=== PATIENT | male | born 1950 | race Caucasian/White ===

== ENCOUNTER 2017-05-22 11:58 | Emergency (ER) | payer MEDICARE ==
[~2017-05-22] VITALS: Ht 180.3 cm; Wt 89.4 kg
[~2017-05-22 11:58] MED LIST: ATENOLOL100 MG PO; POTASSIUM CHLO20 ME1 PO; POTASSIUM PO; PRAVASTATIN PO; PRAVASTATIN SOD80 MG PO; TENORETIC PO
[2017-05-23] MEDS ORDERED: DOCUSATE SODIUM LIQD 100 MG/10 ML UDC NG SCH ×2 (09:00)
== END 2017-05-22 15:44 | disposition home or self-care (01) ==
LOC: FSED 11:58
DX: H92.03 Otalgia, bilateral (principal); H61.23 Impacted cerumen, bilateral
CPT/HCPCS: 99284

== ENCOUNTER → 2017-06-24 | Day surgery (SDC) | payer MEDICARE ==
--- NOTE | 2017-06-22 13:46 | Diagnostic Imaging Report ---
PROCEDURE: X-RAY CHEST, TWO VIEWS COMPARISON: Chest x-ray 10/01/15 INDICATIONS: PRE-OPERATIVE CHEST X-RAY FOR REMOVAL OF VAP FINDINGS: LUNGS: No soft tissue mass or infiltrate. A subcentimeter granuloma or bone island in the left upper lobe is stable. The pulmonary interstitium is normal. PLEURA: No effusions or pneumothorax. HEART \T\ MEDIASTINUM: MediPort catheter terminates in the distal innominate vein/proximal SVC without pneumothorax. The heart is within normal size-limits. Prominent pulmonary arteries are stable. BONES \T\ SOFT TISSUES: No focal osseous lesions. Surgical clips in the lower right neck are stable. CONCLUSION: No acute thoracic abnormality. MediPort catheter as described above. Dictated by: Gopi Patel M.D. on 06/22/2017 at 13:47 Electronically approved by: Gopi Patel M.D. on 06/22/2017 at 13:47
[2017-06-22 13:58] LABS: BASOPHILS % 0.4 % (0.0-1.0); EOSINOPHILS # (AUTO) 0.1 (0.0-0.4); EOSINOPHILS % 1.9 % (0.0-6.0); HEMATOCRIT 46.4 % (38.2-49.6); LYMPHOCYTES % 26.2 % (18.0-39.1); MEAN CORPUSCULAR HGB CONC 34.5 g/dL (31-35); MEAN CORPUSCULAR VOLUME 86.9 fL (81-99); MONOCYTES # (AUTO) 0.7 (0.2-0.8); MONOCYTES % 8.8 % (4.4-11.3); NEUTROPHILS # (AUTO) 4.7 (2.1-6.9); NEUTROPHILS % 62.3 % (38.7-80.0); PLATELET COUNT 201 x10e3/uL (140-360); RED BLOOD COUNT 5.34 x10e6/uL (4.3-5.7); RED CELL DISTRIBUTION WIDTH 14.2 % (11.7-14.4)
[2017-06-22 14:20] LABS: ALANINE AMINOTRANSFERASE 36 IU/L (0-55); ALBUMIN 3.9 g/dL (3.5-5.0); ALBUMIN/GLOBULIN RATIO 1.1 (0.8-2.0); ALKALINE PHOSPHATASE 73 IU/L (40-150); ANION GAP 14.7 mmol/L (8-16); BLOOD UREA NITROGEN 18 mg/dL (7-26); BUN/CREATININE RATIO 18 (6-25); CARBON DIOXIDE 34 mmol/L (22-29); CHLORIDE 99 mmol/L (98-107); CREATININE, SERUM 0.98 mg/dL (0.72-1.25); EST GLOMERULAR FILTRATION RATE > 60 ML/MIN (60-); GLUCOSE 105 mg/dL (74-118); POTASSIUM 4.7 mmol/L (3.5-5.1); SODIUM 143 mmol/L (136-145)
[~2017-06-24] MED LIST changes: +BUPIVACAINE 0.25%/EPI 30ML SDV INJ ONE; +FENTANYL CITRATE/PF 100MCG/2 ML INJ ONE; +HYOSCYAMINE SULFATE 0.5 MG/ML AMP ONE; +LIDOCAINE HCL 1% LOCAL INJ 20 ML VIAL ONE; +LIDOCAINE HCL 2% LOCAL INJ 5 ML SDV VIAL INJ ONE; +MIDAZOLAM HCL 2 MG/2 ML VIAL ONE; +PROPOFOL IV EMULSION 10 MG/ML 50 ML VIAL ONE
--- OUTSIDE RECORDS SUMMARY | 2017-06-24 10:58 | XMS REPORT | Continuity of Care Document ---
Author Author [facility] Organization [facility] Address [address] [place] [address] Phone Unavailable Care Team Providers Care Automation Lead Name Role Phone JHON LIMON MD PCP Insurance Providers Guarantor Narendra Morse Address [address] [place] [address] Email [email or web address] Payer [facility] Policy Number [id number] Subscriber's Name SadiebingchloeNarendra Relationship 18 Self / Same As Patient Group Number PLAN [id number] Group Name [employer] Effective Date 17 Payer Medicare A & B Policy Number [id number] Subscriber's Name Narendra Morse Relationship 18 Self / Same As Patient Group Name [employer] Effective Date 15 Advance Directives Directive Response Recorded Date/Time Does the patient have an advance directive? No 10/08/15 3:33pm If yes, is advance directive on file with [facility]? No 10/24/09 3:24pm If not on file with [facility] will patient provide a copy? No 03/25/10 11:52am Do you have a Directive to Physician? No 05/22/17 12:47pm Do you have a Medical Power of Vacuum Metalizing Supervisor? No 04/01/18 12:47pm Do you have an out of hospital Do Not Resuscitate Order? No 05/22/17 12:47pm Do you have any special needs we should be aware of? No 05/22/17 12:47pm Do you have a support person here with you today? No 05/22/17 12:47pm Did patient receive Notice of Privacy Practices? Yes 05/22/17 12:47pm Did patient receive patient rights and responsibilities? Yes 05/22/17 12:47pm Problems No problem information available. Medications Current Home Medications Medication Dose Units Route Directions Days Qty Instructions Start Date Atenolol 100 Mg Tablet 100 Mg Oral Daily Potassium Chloride 20 Meq Tab.er.prt 20 Meq Oral Daily Pravastatin Sodium 80 Mg Tablet 80 Mg Oral Daily THERAPEUTICALLY SUBSTITUTED WITH SIMVASTATIN 40MG Past Home Medications Medication Directions Ordered Status Potassium , Oral Daily Discontinued Pravastatin , Oral Daily Discontinued Tenoretic , Oral Daily Discontinued Family History Relationship Condition Age at Onset Recorded Date/Time 33 Father Family history of cardiac disorder Not Recorded 10/08/2015 3:46pm 32 Mother Family history of diabetes mellitus Not Recorded 10/08/2015 3:45pm 09 Sister FH: ovarian cancer Not Recorded 10/08/2015 3:46pm Social History Social History Problem Response Recorded Date/Time Onset Date Status Hx Psychiatric Problems No 10/08/2015 3:33pm Not Applicable Not Applicable Hx Eating Disorder No 10/08/2015 3:33pm Not Applicable Not Applicable Hx Substance Use Disorder No 10/08/2015 3:33pm Not Applicable Not Applicable Hx Depression No 10/08/2015 3:33pm Not Applicable Not Applicable Hx Alcohol Use Y - SOCIAL 10/08/2015 3:33pm Not Applicable Not Applicable Hx Substance Use Treatment No 10/08/2015 3:33pm Not Applicable Not Applicable Hx Physical Abuse No 10/08/2015 3:33pm Not Applicable Not Applicable Hospital Discharge Instructions No hospital discharge instruction information available. Plan of Care Discharge Date 05/22/17 3:44pm Disposition HOME, SELF-CARE Condition at Discharge Stable Instructions/Education Provided Ear Pain - Adult Prescriptions See Medication Section Referrals JHON LIMON MD Address: [address] [place], [place] [id number] MIKI AREVALO Address: [address] [place] [address] [address] [place] [address] Additional Instructions/Education CALL YOUR DOCTOR TOMORROW FOR FOLLOW UP MAKE AN APPOINTMENT FOR ENT DOCTOR FOR FOLLOW UP Functional Status No functional status information available. Allergies, Adverse Reactions, Alerts No known allergies. Immunizations No immunization information available. Vital Signs Acute Vital Signs Vital Response Date/Time Height 5 ft 11 in 05/22/2017 12:39pm Weight 197 lb 05/22/2017 12:39pm Body Mass Index 27.5 kg/m^2 05/22/2017 12:39pm Results No relevant diagnostic test, laboratory data and/or discharge summary information available. Procedures No procedure information available. Encounters Encounter Location Arrival/Admit Date Discharge/Depart Date Attending Provider Departed Emergency Room [facility] 05/22/17 11:58am 05/22 3:44pm HANK MARTINS
--- OUTSIDE RECORDS SUMMARY | 2017-06-24 10:58 | XMS REPORT ---
Author Author [facility] Address Unknown Phone Unavailable Care Team Providers Care Transformer Builder Name Role Phone CARLITA KLEIN Unavailable Unavailable Problems This patient has no known problems. Allergies, Adverse Reactions, Alerts This patient has no known allergies or adverse reactions. Medications This patient has no known medications. Results Test Description Test Time Test Comments Text Results Atomic Results Result Comments CHEST 2 VIEWS [place] [address] Patient Name: NARENDRA MORSE MR #: [id number] : 1950 Age/Sex: 67/M Req #: [id number] Adm Physician: Ordered by: CARLITA KLEIN MD Report #: [id number] Location: ENDO Room/Bed: Procedure: [id number] DX/CHEST 2 VIEWS Exam Date: 06/22/17 Exam Time : 1330 REPORT STATUS: Signed PROCEDURE: X-RAY CHEST, TWO VIEWS COMPARISON: Chest x-ray 10/01/15 INDICATIONS: PRE-OPERATIVE CHEST X-RAY FOR REMOVAL OF VAP FINDINGS: LUNGS: No soft tissue mass or infiltrate. A subcentimeter granuloma or bone island in the left upper lobe is stable. The pulmonary interstitium is normal. PLEURA: No effusions or pneumothorax. HEART T MEDIASTINUM: MediPort catheter terminates in the distal innominate vein/proximal SVC without pneumothorax. The heart is within normal size-limits. Prominent pulmonary arteries are stable. BONES T SOFT TISSUES: No focal osseous lesions. Surgical clips in the lower right neck are stable. CONCLUSION: No acute thoracic abnormality. MediPort catheter as described above. Dictated by: Juhi Patel M.D. on 06/22/2017 at 13:47 Electronically approved by: Juhi Patel M.D. on 06/22/2017 at 13:47 Dictated By: JUHI PATEL MD [id number] Transcribed By: DEREK on 06/22/17 1347 COPY TO: CARLITA KLEIN MD
--- NOTE | 2017-06-24 19:01 | Operative Report ---
DATE OF PROCEDURE: June 24, 2017 PREOPERATIVE DIAGNOSIS: Malfunctioning venous access port. POSTOPERATIVE DIAGNOSIS: Malfunctioning venous access port. OPERATION PERFORMED: Removal of left subclavian venous access port. ANESTHESIA: Local 1% Xylocaine and MAC. COMPLICATIONS: None. ESTIMATED BLOOD LOSS: Minimal. DESCRIPTION OF PROCEDURE: With the patient lying in bed in the supine position under good IV sedation, the left chest was prepped with Betadine solution and draped in the usual manner. The area overlying the Port-A-Cath was then infiltrated with 1% Xylocaine solution. An incision was made. It was carried down through the subcutaneous tissue and through the capsule of the Port-A-Cath. All 4 silk sutures were removed, and the Port-A-Cath was removed in its entirety without any difficulty. Hemostasis was ascertained. The capsule of the Port-A-Cath was then closed with interrupted sutures of 3-0 Vicryl. The subcutaneous tissue was approximated with 4-0 Vicryl. The skin was closed with subcuticular 5-0 Vicryl. Benzoin, Steri-Strips and dressings were applied. The sponge, lap and needle count was correct. The patient tolerated the procedure well, and returned to the recovery room in stable condition. Job#: [id number] EMANUEL
--- NOTE | 2017-06-24 19:56 | Operative Report ---
DATE OF PROCEDURE: June 24, 2017 REFERRING PHYSICIAN: Dr. Jhon Castanon PROCEDURES PERFORMED 1. Esophagogastroduodenoscopy. 2. Colonoscopy. INDICATIONS FOR EGD 1. History of gastric ulcers. 2. Nunez's esophagus. INDICATIONS FOR COLONOSCOPY 1. Colorectal cancer screening. 2. Personal history of rectal cancer. MEDICATION: Patient was done under MAC. Please see anesthesiologist's note. PROCEDURE: With patient in the left lateral decubitus position, the flexible fiberoptic Olympus gastroscope was introduced into the esophagus under direct visualization without any difficulty. There was a short tongue of Nunez's epithelium noted extending proximally from the GE junction, biopsies were obtained. The scope was then advanced with ease into the stomach. Mucosa overlying the antrum and the body revealed some patchy areas of erythema and low-grade edema. Biopsies were obtained and sent to stain for H. pylori. Minute ulcers were noted in the antrum and biopsies were obtained. The pylorus was intubated with ease and the scope was advanced all the way to the 2nd portion of the duodenum. The scope was then withdrawn slowly. Mucosa overlying the proximal 2nd portion and the duodenal bulb appeared to be within normal limits. The scope was then withdrawn back into the stomach and retroflexed and mucosa overlying the fundus and the cardia appeared to be within normal limits. The scope was then straightened out. The stomach was decompressed. Scope was subsequently withdrawn. Patient tolerated the procedure well. IMPRESSIONS 1. Nunez's esophagus, biopsied. 2. Gastritis, biopsied. Biopsies sent to stain for Helicobacter pylori. 3. Gastric ulcers, minute, antrum biopsied. PLAN: Follow up histology. Initiate Protonix 40 mg 1 p.o. q.a.m a.c.. Patient was then turned around and after adequate lubrication of the anal canal a flexible fiberoptic Olympus colonoscope was inserted into the rectum with ease and advanced all the way to the cecum. It was then withdrawn slowly. Mucosa overlying the cecum ascending colon transverse colon descending colon, sigmoid colon appeared to be within normal limits. Anastomosis was noted in the distal rectum and was intact. There was no evidence of recurrence. The scope was then retroflexed into the distal rectum and the area around the dentate line appeared to be within normal limits. The scope was then straightened out and a subsequently withdrawn. Patient tolerated the procedure well. IMPRESSION: Anastomosis, intact, no evidence of recurrence. PLAN 1. Initiate high-fiber low-fat diet. 2. Initiate high-fiber supplement. 3. Patient will need a followup colonoscopy in 3 years. Job#: [id number] CQ cc:JHON CASTANON MD
== END | disposition home or self-care (01) ==
LOC: ENDO 10:56
PROVIDERS: ATTEND Surgery
DX: Z12.11 Encounter for screening for malignant neoplasm of colon (principal); Z85.048 Personal history of other malignant neoplasm of rectum, rectosigmoid junction, and anus; T82.594A Other mechanical complication of infusion catheter, initial encounter; K29.70 Gastritis, unspecified, without bleeding; K25.9 Gastric ulcer, unspecified as acute or chronic, without hemorrhage or perforation; K22.70 Barrett's esophagus without dysplasia; K57.30 Diverticulosis of large intestine without perforation or abscess without bleeding; K22.8 Other specified diseases of esophagus; Z98.0 Intestinal bypass and anastomosis status; G47.33 Obstructive sleep apnea (adult) (pediatric); I10 Essential (primary) hypertension; E78.00 Pure hypercholesterolemia, unspecified; Y83.8 Other surgical procedures as the cause of abnormal reaction of the patient, or of later complication, without mention of misadventure at the time of the procedure; Z01.810 Encounter for preprocedural cardiovascular examination; Z01.812 Encounter for preprocedural laboratory examination; Z01.818 Encounter for other preprocedural examination; Z79.82 Long term (current) use of aspirin; Z68.28 Body mass index [BMI] 28.0-28.9, adult
CPT/HCPCS: 36590; 43239; G0105; 36415; 45378; 71046; 80053; 85025; 88305; 88312; 93005; J1980; J2001; J2250

== ENCOUNTER 2017-12-02 09:06 | Observation (INO) | payer MEDICARE ==
[2017-11-23 10:49] LABS: BASOPHILS % 0.2 % (0.0-1.0); EOSINOPHILS # (AUTO) 0.2 (0.0-0.4); EOSINOPHILS % 2.5 % (0.0-6.0); HEMATOCRIT 48.7 % (38.2-49.6); HEMOGLOBIN 16.8 g/dL (14.0-18.0); LYMPHOCYTES # (AUTO) 1.9 (1.0-3.2); LYMPHOCYTES % 23.1 % (18.0-39.1); MEAN CORPUSCULAR HEMOGLOBIN 29.1 pg (28-32); MEAN CORPUSCULAR HGB CONC 34.5 g/dL (31-35); MEAN CORPUSCULAR VOLUME 84.3 fL (81-99); MONOCYTES # (AUTO) 0.8 (0.2-0.8); MONOCYTES % 9.7 % (4.4-11.3); NEUTROPHILS # (AUTO) 5.4 (2.1-6.9); NEUTROPHILS % 64.3 % (38.7-80.0); PLATELET COUNT 212 x10e3/uL (140-360); RED BLOOD COUNT 5.78 x10e6/uL (4.3-5.7); RED CELL DISTRIBUTION WIDTH 13.8 % (11.7-14.4)
--- NOTE | 2017-11-23 11:07 | Diagnostic Imaging Report ---
PROCEDURE: Frontal and lateral views of the chest. COMPARISON: Chest radiograph 06/22/17. INDICATIONS: PRE-OP, MELANOMA REMOVAL FINDINGS: Lines/tubes: Interval removal of left sided chest port. Lungs: Moderate lung volumes. There is no evidence of pneumonia or pulmonary edema. Calcified subcentimeter granuloma or bone island is again noted overlying the left upper lung. Pleura: There is no pleural effusion or pneumothorax. Heart and mediastinum: The cardiomediastinal silhouette is unchanged. Atherosclerotic aortic calcifications. Bones: No acute bony abnormality. IMPRESSION: No acute radiographic abnormality. Dictated by: RUPAL GARAY M.D. on 11/23/2017 at 11:15 Electronically approved by: RUPAL GARAY M.D. on 11/23/2017 at 11:15
[2017-11-23 11:13] LABS: ANION GAP 17.7 mmol/L (8-16); BLOOD UREA NITROGEN 16 mg/dL (7-26); BUN/CREATININE RATIO 15 (6-25); CALCIUM 9.9 mg/dL (8.4-10.2); CARBON DIOXIDE 29 mmol/L (22-29); CHLORIDE 98 mmol/L (98-107); CREATININE, SERUM 1.08 mg/dL (0.72-1.25); EST GLOMERULAR FILTRATION RATE > 60 ML/MIN (60-); GLUCOSE 111 mg/dL (74-118); POTASSIUM 3.7 mmol/L (3.5-5.1); SODIUM 141 mmol/L (136-145)
[~2017-12-02] VITALS: Ht 180.3 cm; Wt 90.7 kg
[~2017-12-02 09:06] MED LIST changes: -BUPIVACAINE 0.25%/EPI 30ML SDV INJ ONE; -FENTANYL CITRATE/PF 100MCG/2 ML INJ ONE; -HYOSCYAMINE SULFATE 0.5 MG/ML AMP ONE; -LIDOCAINE HCL 1% LOCAL INJ 20 ML VIAL ONE; -LIDOCAINE HCL 2% LOCAL INJ 5 ML SDV VIAL INJ ONE; -MIDAZOLAM HCL 2 MG/2 ML VIAL ONE; +PANTOPRAZOLE SO40 MG PO; -PROPOFOL IV EMULSION 10 MG/ML 50 ML VIAL ONE
[2017-12-02] MEDS ORDERED: MIDAZOLAM HCL 2 MG/2 ML VIAL ONE (12:20)
[2017-12-02] MEDS ORDERED: FENTANYL CITRATE/PF 100MCG/2 ML INJ ONE ×2 (12:20→15:14)
[2017-12-02] MEDS ORDERED: BUPIVACAINE 0.25%/EPI 30ML SDV INJ ONE (13:05)
[2017-12-02] MEDS ORDERED: NEOSTIGMINE 1 MG/ML 10ML VIAL ONE (13:05)
[2017-12-02] MEDS ORDERED: LIDOCAINE HCL 1% 30ML-PF VIAL ONE (13:05)
[2017-12-02] MEDS ORDERED: HYDROMORPHONE 1MG/1ML INJ IV PRN (15:00)
[2017-12-02] MEDS ORDERED: ACETAMINOPHEN 1000 MG/100 ML IV PRN (15:00)
[2017-12-02] MEDS ORDERED: KETOROLAC TROMETHAMINE 30 MG/ML VIAL IV PRN (15:00)
[2017-12-02] MEDS: SODIUM CHLORIDE 0.9% 1000ML 1,000 ML IV SCH (15:00)
--- NOTE | 2017-12-02 15:42 | Operative Report ---
DATE OF PROCEDURE: December 02, 2017 PREOPERATIVE DIAGNOSIS: Melanoma of the scalp. POSTOPERATIVE DIAGNOSIS: Melanoma of the scalp. OPERATION PERFORMED: Wide excision and melanoma of the scalp with rotational flap closure. ANESTHESIA: General. COMPLICATIONS: None. ESTIMATED BLOOD LOSS: 25 mL. DESCRIPTION OF PROCEDURE: With the patient lying in bed in the prone position under good general endotracheal anesthesia, the scalp was prepped with Hibiclens solution and draped in the usual manner. There was melanoma in the right posterior parietal scalp near the occipital junction which had been previously biopsied in the center. This was a rather large melanoma with some satellite lesions encompassing probably close to a 1.5 cm to 2 cm in size. At least a 1 cm margin was drawn all the way around the lesion and then an elliptical transverse incision was made all the way down to the bone and the lesion was totally and completely from the scalp and removed. It was properly oriented and marked and sent for pathological examination. Very wide flaps were then done in all directions in an anterior, posterior position and we went as wide as we could and we mobilized as much of the scalp as we could. However, because of the size of the lesion it was virtually impossible to get the center to approximate. The sides were then closed with interrupted vertical mattress sutures of 2-0 nylon and 0 Prolene and we got most of the area closed with the very center area probably about a centimeter and a half, could not be allowed reapproximated to this was left open and then packed with Xeroform gauze. A dressing was placed. The sponge, lap and needle count was correct. The patient tolerated the procedure well and returned to the recovery room in stable condition. Job#: [id number]
[2017-12-02 17:03] VITALS: BP 142/81
[2017-12-02] MEDS: HYDROMORPHONE 2MG/ML 2 MG/ML ML IV PRN ×2 (17:45→23:53)
[2017-12-02] MEDS: ONDANSETRON HCL INJ 2 MG/ML VIAL IV PRN ×2 (17:45→23:54)
[2017-12-02] MEDS: POTASSIUM CHLORIDE 20 MEQ TAB CR PO SCH (17:52)
[2017-12-02 18:22] VITALS: BP 176/84
[2017-12-02] MEDS ORDERED: KETOROLAC TROMETHAMINE 30 MG/ML VIAL ONE (19:50)
[2017-12-02] MEDS ORDERED: ROCURONIUM BROMIDE 10 MG/ML 5ML VIAL ONE (19:50)
[2017-12-02] MEDS ORDERED: CEFAZOLIN SOD 1 GM VIAL ONE (19:50)
[2017-12-02] MEDS ORDERED: SEVOFLURANE INHAL SOLN 250 ML PEN BTL ONE (19:50)
[2017-12-02] MEDS ORDERED: DEXAMETHASONE SOD PHOS INJ 4 MG/ML VIAL ONE (19:50)
[2017-12-02] MEDS ORDERED: LIDOCAINE HCL 2% LOCAL INJ 5 ML SDV VIAL INJ ONE (19:50)
[2017-12-02] MEDS ORDERED: ONDANSETRON HCL INJ 2 MG/ML VIAL ONE (19:50)
[2017-12-02] MEDS ORDERED: PROPOFOL IV EMULSION 10 MG/ML 20 ML VIAL ONE (19:50)
[2017-12-02 20:00] VITALS: BP 130/63
[2017-12-02] MEDS: HYDROCODONE/APAP 7.5MG-325MG 1 EA TAB PO PRN (20:01)
[2017-12-02] MEDS ORDERED: SIMVASTATIN 40 MG TAB PO SCH (21:00)
[2017-12-02] MEDS: CEFAZOLIN SOD 1 GM VIAL IV SCH (21:58)
[2017-12-02] MEDS ORDERED: CEFAZOLIN SOD 1 GM/D5W 50ML 50 ML IV SCH (22:00)
[2017-12-03] VITALS: BP 130/61
[2017-12-03] MEDS: SODIUM CHLORIDE 0.9% 1000ML 1,000 ML IV SCH ×2 (01:49→11:00)
[2017-12-03 04:00] VITALS: BP 139/72
[2017-12-03] MEDS: HYDROCODONE/APAP 7.5MG-325MG 1 EA TAB PO PRN (05:25)
[2017-12-03] MEDS: CEFAZOLIN SOD 1 GM VIAL IV SCH (05:25)
[2017-12-03] MEDS ORDERED: PANTOPRAZOLE SOD 40 MG TABEC PO SCH (07:30)
[2017-12-03 08:15] VITALS: BP 120/61
[2017-12-03] MEDS ORDERED: ATENOLOL 100 MG TAB PO SCH (09:00)
[2017-12-03] MEDS: POTASSIUM CHLORIDE 20 MEQ TAB CR PO SCH ×2 (09:30→17:30)
[2017-12-03 09:46] VITALS: BP 120/61
[2017-12-03] MEDS: HYDROMORPHONE 2MG/ML 2 MG/ML ML IV PRN ×2 (11:05→17:30)
[2017-12-03] MEDS: ONDANSETRON HCL INJ 2 MG/ML VIAL IV PRN ×2 (11:05→17:30)
[2017-12-03 11:47] VITALS: BP 124/60
[2017-12-03 16:13] VITALS: BP 129/62
[2017-12-03] MEDS ORDERED: NORCO 7.5-3251 EACH PO (18:44)
[2017-12-03] MEDS ORDERED: KEFLEX500 MG PO (18:44)
== END 2017-12-03 19:38 | disposition home or self-care (01) ==
LOC: OR 09:06 → PACU V 15:01 → MED/SURG 15:55
PROVIDERS: ADMIT Surgery; ATTEND Surgery
DX: D03.4 Melanoma in situ of scalp and neck (principal); I10 Essential (primary) hypertension; K21.9 Gastro-esophageal reflux disease without esophagitis; Z01.810 Encounter for preprocedural cardiovascular examination; Z01.812 Encounter for preprocedural laboratory examination; Z01.811 Encounter for preprocedural respiratory examination
CPT/HCPCS: 14020; 21011; 36415; 71046; 80048; 85025; 88309; 93005; G0378 ×2; J0690 ×2; J1100; J1170 ×2; J1885; J2001; J2250; J2405 ×2; J2710; J7030 ×2; S0164 ×2; 88305

== ENCOUNTER → 2018-09-01 | Day surgery (SDC) | payer MEDICARE ==
[2018-08-28 15:08] LABS: BASOPHILS % 0.3 % (0.0-1.0); EOSINOPHILS # (AUTO) 0.2 (0.0-0.4); EOSINOPHILS % 2.9 % (0.0-6.0); HEMATOCRIT 43.7 % (38.2-49.6); HEMOGLOBIN 14.5 g/dL (14.0-18.0); LYMPHOCYTES # (AUTO) 1.7 (1.0-3.2); LYMPHOCYTES % 21.7 % (18.0-39.1); MEAN CORPUSCULAR HEMOGLOBIN 28.9 pg (28-32); MEAN CORPUSCULAR HGB CONC 33.2 g/dL (31-35); MEAN CORPUSCULAR VOLUME 87.2 fL (81-99); MONOCYTES # (AUTO) 0.6 (0.2-0.8); MONOCYTES % 8.3 % (4.4-11.3); NEUTROPHILS # (AUTO) 5.1 (2.1-6.9); NEUTROPHILS % 66.5 % (38.7-80.0); PLATELET COUNT 223 x10e3/uL (140-360); RED BLOOD COUNT 5.01 x10e6/uL (4.3-5.7); RED CELL DISTRIBUTION WIDTH 13.8 % (11.7-14.4)
[~2018-09-01] MED LIST changes: +ATENOLOL-CHLOR1 EACH PO; +FENTANYL CITRATE/PF 100MCG/2 ML INJ ONE; +HYOSCYAMINE 0.125 MG TAB ONE; +KEFLEX500 MG PO; +MIDAZOLAM HCL 2 MG/2 ML VIAL ONE; +NORCO 7.5-3251 EACH PO; +PROPOFOL IV EMULSION 10 MG/ML 50 ML VIAL ONE
[2018-09-01 12:00] VITALS: BP 142/80
--- NOTE | 2018-09-01 13:03 | Operative Report ---
DATE OF PROCEDURE: 09/01/2018 SURGEON: Krzysztof Merlos MD PROCEDURE: Esophagogastroduodenoscopy with biopsies and colonoscopy with polypectomy. ADDITIONAL REFERRING PHYSICIAN: Dr. Claudette Ware. INDICATIONS FOR EGD: History of gastric ulcers. INDICATIONS FOR COLONOSCOPY: Surveillance colonoscopy, history of rectal cancer. MEDICATION: The patient was done under MAC, please see anesthesiologist's note. PROCEDURE IN DETAIL: With the patient in left lateral decubitus position, flexible fiberoptic Olympus gastroscope was introduced into the esophagus under direct visualization without any difficulty. A cluster of minute nodules was noted in the cervical esophagus and that was biopsied. A tongue of Nunez's epithelium was noted to extend proximally from the GE junction and no biopsies were obtained as biopsies were done in the recent past. The scope was then advanced with ease into the stomach and mucosa overlying the antrum and the body revealed some patchy areas of erythema. The previously described gastric ulcers appeared to have healed. The pylorus was of normal contour and shape, it was intubated with ease and the scope was advanced all the way to the second portion of the duodenum. The scope was then withdrawn slowly and mucosa overlying the proximal second portion and the duodenal bulb appeared to be within normal limits. The scope was then withdrawn back into the stomach and retroflexed and mucosa overlying the fundus and the cardia appeared to be within normal limits. The scope was then straightened out, it was subsequently withdrawn. The patient tolerated procedure well. IMPRESSION: 1. Cluster of nodules, cervical esophagus, biopsied. 2. Nunez's esophagus. 3. Gastritis. 4. Gastric ulcers, previously described, well healed. PLAN: Follow up histology. Continue Protonix 40 mg one p.o. q.a.m. a.c. PROCEDURE IN DETAIL: The patient was then turned around and after adequate lubrication of the anal canal, a flexible fiberoptic Olympus colonoscope was inserted into the rectum with ease and advanced all the way to the cecum. It was then withdrawn slowly and mucosa overlying the cecum, ascending colon, transverse colon grossly appeared to be within normal limits. One polyp was hot biopsied from the descending colon and the sigmoid appeared to be within normal limits. Anastomosis was noted in the distal rectum. It was intact. There was no evidence of recurrence. A minute polyp was noted just distal to the anastomosis and that was hot biopsied. The scope was then retroflexed into the distal rectum and small internal hemorrhoids were noted, none of which was actively bleeding. The scope was then straightened out, it was subsequently withdrawn. The patient tolerated procedure well. IMPRESSION: 1. Colon polyp, minute, descending colon, hot biopsied. 2. Rectal anastomosis intact without evidence of recurrence. 3. Minute polyp distal to anastomosis, hot biopsied. 4. Internal hemorrhoids, none actively bleeding. PLAN: Follow up histology. Initiate high-fiber, low-fat diet. Initiate high-fiber supplement. The patient might benefit from a followup colonoscopy in 3 years. Krzysztof Merlos MD [facility] [place]/MODL /[id number] cc: MD Claudette Borges MD
== END | disposition home or self-care (01) ==
LOC: OR 06:49
PROVIDERS: ATTEND Internal Medicine Gastroenterology
DX: K22.70 Barrett's esophagus without dysplasia (principal); K63.5 Polyp of colon; K62.1 Rectal polyp; K29.70 Gastritis, unspecified, without bleeding; K22.8 Other specified diseases of esophagus; K57.30 Diverticulosis of large intestine without perforation or abscess without bleeding; K21.9 Gastro-esophageal reflux disease without esophagitis; Z98.0 Intestinal bypass and anastomosis status; I10 Essential (primary) hypertension; E78.00 Pure hypercholesterolemia, unspecified; Z79.82 Long term (current) use of aspirin; Z68.27 Body mass index [BMI] 27.0-27.9, adult; Z85.038 Personal history of other malignant neoplasm of large intestine; Z85.048 Personal history of other malignant neoplasm of rectum, rectosigmoid junction, and anus
CPT/HCPCS: 36415; 43239; 45384; 85025; 88305; 93005; J2250; J2704; 45378; J3010

== ENCOUNTER → 2018-10-03 | Outpatient (CLI) | payer MEDICARE ==
[~2018-10-03] MED LIST changes: -FENTANYL CITRATE/PF 100MCG/2 ML INJ ONE; -HYOSCYAMINE 0.125 MG TAB ONE; -MIDAZOLAM HCL 2 MG/2 ML VIAL ONE; -PROPOFOL IV EMULSION 10 MG/ML 50 ML VIAL ONE
--- NOTE | 2018-10-03 17:18 | Diagnostic Imaging Report ---
EXAMINATION: CLAVICLE LEFT, CLAVICLE RIGHT INDICATION: Palpable abnormality left clavicle COMPARISON: None FINDINGS: Left clavicle: No acute fracture or dislocation. Mild left acromioclavicular and left glenohumeral joint degenerative changes. Right clavicle: No acute fracture or dislocation. Moderate degenerative changes of the right midclavicular joint with osteophyte formation. Mild glenohumeral joint degenerative changes. IMPRESSION: No acute osseous injury. Moderate right and mild left clavicle midclavicular joint degenerative changes. If there is concern for soft tissue nodularity or lymphadenopathy, further evaluation with cross-sectional imaging or focused soft tissue ultrasound is recommended. Signed by: Fanny Mcbride MD on 10/03/2018 5:15 PM
--- NOTE | 2018-10-03 17:22 | Diagnostic Imaging Report ---
EXAMINATION: CHEST 2 VIEWS INDICATION: Colon cancer COMPARISON: None FINDINGS: LINES/TUBES:None LUNGS:The lungs are well-inflated. No focal consolidation or pulmonary edema. Scattered subcentimeter bilateral calcified granulomas. PLEURA:No pleural effusion or pneumothorax. MEDIASTINUM:The cardiomediastinal silhouette appears normal in size and shape. Atherosclerotic calcifications of the thoracic aorta. BONES/SOFT TISSUES:No acute osseous injury. ABDOMEN:No free air under the diaphragm. IMPRESSION: No focal pneumonia or pulmonary edema. No suspicious radiographic apparent pulmonary nodules. Note is made that plain radiograph is not sensitive for detection of small metastatic nodules. If there is concern for metastatic disease, further evaluation with CT is recommended for superior sensitivity. Signed by: Fanny Mcbride MD on 10/03/2018 5:18 PM
== END ==
LOC: RAD 16:21
PROVIDERS: ATTEND Internal Medicine Medical Oncology
DX: M89.9 Disorder of bone, unspecified (principal); C18.9 Malignant neoplasm of colon, unspecified
CPT/HCPCS: 71046

== ENCOUNTER → 2019-09-11 | Day surgery (SDC) | payer MEDICARE, OTHER ==
[2019-09-06 14:24] LABS: BASOPHILS % 0.5 % (0.0-1.0); EOSINOPHILS # (AUTO) 0.3 (0.0-0.4); EOSINOPHILS % 3.5 % (0.0-6.0); HEMATOCRIT 46.2 % (38.2-49.6); HEMOGLOBIN 14.7 g/dL (14.0-18.0); LYMPHOCYTES % 24.6 % (18.0-39.1); MEAN CORPUSCULAR HEMOGLOBIN 26.9 pg (28-32); MEAN CORPUSCULAR HGB CONC 31.8 g/dL (31-35); MEAN CORPUSCULAR VOLUME 84.5 fL (81-99); MONOCYTES # (AUTO) 0.7 (0.2-0.8); MONOCYTES % 8.5 % (4.4-11.3); NEUTROPHILS % 62.3 % (38.7-80.0); PLATELET COUNT 224 x10e3/uL (140-360); RED BLOOD COUNT 5.47 x10e6/uL (4.3-5.7); RED CELL DISTRIBUTION WIDTH 13.3 % (11.7-14.4)
[2019-09-06 14:41] LABS: ALANINE AMINOTRANSFERASE 19 IU/L (0-55); ALBUMIN/GLOBULIN RATIO 1.3 (0.8-2.0); ALKALINE PHOSPHATASE 68 IU/L (40-150); ANION GAP 16.2 mmol/L (8-16); BLOOD UREA NITROGEN 15 mg/dL (7-26); BUN/CREATININE RATIO 14 (6-25); CALCIUM 9.2 mg/dL (8.4-10.2); CARBON DIOXIDE 29 mmol/L (22-29); CHLORIDE 103 mmol/L (98-107); CREATININE, SERUM 1.09 mg/dL (0.72-1.25); EST GLOMERULAR FILTRATION RATE > 60 ML/MIN (60-); GLUCOSE 94 mg/dL (74-118); POTASSIUM 4.2 mmol/L (3.5-5.1); SODIUM 144 mmol/L (136-145)
--- NOTE | 2019-09-06 15:40 | Diagnostic Imaging Report ---
EXAM: CHEST 2 VIEWS DATE: 09/06/2019 2:52 PM INDICATION: Preoperative evaluation COMPARISON: 10/03/2018 FINDINGS: The trachea is midline. The lungs are symmetrically expanded without evidence for large focal consolidation, pneumothorax, or significant pleural effusion. The cardiomediastinal silhouette and pulmonary vasculature are within normal limits. Mild left are sclerotic calcifications noted within the thoracic aorta. No acute osseous abnormality is identified. The surrounding soft tissues are unremarkable. IMPRESSION: No acute cardiopulmonary process identified. Signed by: Dr. Jose Ramon Talbert MD on 09/06/2019 3:37 PM
[~2019-09-11] MED LIST changes: +ACETAMINOPHEN 1000 MG/100 ML IV ONE; +BUPIVACAINE 0.25%/EPI 30ML SDV INJ ONE; +DEXAMETHASONE SOD PHOS INJ 4 MG/ML VIAL ONE; +EPHEDRINE SULFATE INJ 50 MG/ML VIAL ONE; +FENTANYL CITRATE/PF 100MCG/2 ML INJ ONE; +KETOROLAC TROMETHAMINE 30 MG/ML VIAL ONE; +LIDOCAINE HCL 2% LOCAL INJ 5 ML SDV VIAL INJ ONE; +NEOSTIGMINE 1 MG/ML 10ML VIAL ONE; +ONDANSETRON HCL INJ 2MG/ML 2ML 2 MG/ML VIAL ONE; +PROPOFOL IV EMULSION 10 MG/ML 20 ML VIAL ONE; +SEVOFLURANE INHAL SOLN 250 ML PEN BTL ONE
[2019-09-11 14:40] VITALS: BP 140/75
--- NOTE | 2019-09-11 17:36 | Operative Report ---
DATE OF PROCEDURE: 09/11/2019 SURGEON: Akbar Harvey MD PREOPERATIVE DIAGNOSIS: Mass of the occipital scalp, rule out recurrent melanoma. POSTOPERATIVE DIAGNOSIS: Mass of the occipital scalp, rule out recurrent melanoma. OPERATION PERFORMED: Resection of mass of the occipital scalp. ANESTHESIA: General. COMPLICATIONS: None. ESTIMATED BLOOD LOSS: 25 mL. DESCRIPTION OF PROCEDURE: With the patient lying in bed in the supine position, the patient was placed laterally under good general endotracheal anesthesia, and the back of the neck and occipital scalp was then prepped with Hibiclens solution and draped in the usual manner. The area overlying the mass in the occipital region was then infiltrated with 0.25% Marcaine with epinephrine. An incision was made, it was carried down through the subcutaneous tissue and between the scalp musculature and the occipital bone, there was a mass which was kind of infiltrating into the muscle; this was certainly suspicious for malignancy, although some kind of a reactive lymph node could do a similar thing. The whole area was then widely excised including the muscle all the way down to the bone and totally and completely resected, and sent for pathological examination. The whole area was then thoroughly irrigated. Perfect hemostasis was ascertained. The deeper tissues were then reapproximated with interrupted sutures of 3-0 Vicryl and the skin was closed with interrupted vertical mattress sutures of 2-0 nylon. A dressing was applied. The sponge, lap, and needle counts were correct. The patient tolerated the procedure well and returned to the recovery room in stable condition. Akbar Harvey MD [facility] /[id number]
== END | disposition home or self-care (01) ==
LOC: OR 10:05
PROVIDERS: ATTEND Surgery
DX: C49.0 Malignant neoplasm of connective and soft tissue of head, face and neck (principal); I10 Essential (primary) hypertension; Z01.810 Encounter for preprocedural cardiovascular examination; Z01.812 Encounter for preprocedural laboratory examination; Z01.818 Encounter for other preprocedural examination; Z11.59 Encounter for screening for other viral diseases; Z85.038 Personal history of other malignant neoplasm of large intestine
CPT/HCPCS: 21016; 36415; 71046; 80053; 85025; 88305; 88342; 93005; J0131; J1100; J1885; J2001; J2405; J2704; J2710; J3010; U0002; 88307

== ENCOUNTER 2020-04-21 10:41 | Emergency (ER) | payer MEDICARE ==
[~2020-04-21] VITALS: Ht 180.3 cm; Wt 90.7 kg
[~2020-04-21 10:41] MED LIST changes: -ACETAMINOPHEN 1000 MG/100 ML IV ONE; -BUPIVACAINE 0.25%/EPI 30ML SDV INJ ONE; -DEXAMETHASONE SOD PHOS INJ 4 MG/ML VIAL ONE; -EPHEDRINE SULFATE INJ 50 MG/ML VIAL ONE; -FENTANYL CITRATE/PF 100MCG/2 ML INJ ONE; -KETOROLAC TROMETHAMINE 30 MG/ML VIAL ONE; -LIDOCAINE HCL 2% LOCAL INJ 5 ML SDV VIAL INJ ONE; -NEOSTIGMINE 1 MG/ML 10ML VIAL ONE; -ONDANSETRON HCL INJ 2MG/ML 2ML 2 MG/ML VIAL ONE; -PROPOFOL IV EMULSION 10 MG/ML 20 ML VIAL ONE; -SEVOFLURANE INHAL SOLN 250 ML PEN BTL ONE
[2020-04-21] MEDS ORDERED: SODIUM CHLORIDE 0.9% 1000ML 1,000 ML IV STA (11:03)
[2020-04-21] MEDS ORDERED: PANTOPRAZOLE 40 MG 10ML VIAL IV STA (11:03)
[2020-04-21] MEDS ORDERED: ONDANSETRON HCL INJ 2MG/ML 2ML 2 MG/ML VIAL IV STA (11:03)
[2020-04-21 11:15] LABS: BASOPHILS % 0.2 % (0.0-1.0); EOSINOPHILS # (AUTO) 0.1 (0.0-0.4); EOSINOPHILS % 0.5 % (0.0-6.0); HEMATOCRIT 51.4 % (38.2-49.6); HEMOGLOBIN 17.3 g/dL (14.0-18.0); LYMPHOCYTES # (AUTO) 1.2 (1.0-3.2); MEAN CORPUSCULAR HEMOGLOBIN 25.9 pg (28-32); MEAN CORPUSCULAR HGB CONC 33.7 g/dL (31-35); MEAN CORPUSCULAR VOLUME 77.1 fL (81-99); MONOCYTES # (AUTO) 1.8 (0.2-0.8); MONOCYTES % 13.8 % (4.4-11.3); NEUTROPHILS % 75.3 % (38.7-80.0); PLATELET COUNT 440 x10e3/uL (140-360); RED BLOOD COUNT 6.67 x10e6/uL (4.3-5.7); RED CELL DISTRIBUTION WIDTH 14.9 % (11.7-14.4)
[2020-04-21 11:28] LABS: INR 1.04; PARTIAL THROMBOPLASTIN TIME 25.7 seconds (23.8-35.5); PROTHROMBIN TIME 14.2 seconds (11.9-14.5)
[2020-04-21 11:38] LABS: ALBUMIN 3.3 g/dL (3.5-5.0); ALBUMIN/GLOBULIN RATIO 0.8 (0.8-2.0); ANION GAP 25.1 mmol/L (8-16); CREATININE, SERUM 1.43 mg/dL (0.72-1.25); MAGNESIUM 1.9 MG/DL (1.3-2.1); POTASSIUM 3.1 mmol/L (3.5-5.1)
[2020-04-21 11:45] LABS: CREATINE KINASE MB 1.3 ng/mL (0-5.0)
[2020-04-21] MEDS ORDERED: POTASSIUM CHLORIDE 20 MEQ TAB CR PO STA (12:31)
[2020-04-21 14:32] LABS: BAND NEUTROPHILS % (MANUAL) 5 %; LYMPHOCYTES % (MANUAL) 9 % (19-48); MONOCYTES % (MANUAL) 10 % (3.4-9.0); NEUTROPHILS % (MANUAL) 73 % (40-74); PLATELET ESTIMATE SLIGHTLY INCREASED; PLATELET MORPHOLOGY COMMENT RARE EDTA CLUMPING; RBC MORPHOLOGY COMMENT NORMAL
== END 2020-04-21 13:18 | disposition home or self-care (01) ==
LOC: ER 11:07
DX: R19.7 Diarrhea, unspecified (principal); I10 Essential (primary) hypertension; E78.5 Hyperlipidemia, unspecified; E78.00 Pure hypercholesterolemia, unspecified; Z85.820 Personal history of malignant melanoma of skin; Z98.0 Intestinal bypass and anastomosis status
CPT/HCPCS: 36415; 80053; 82550; 82553; 83735; 84484; 85025; 85610; 85730; 99283; C9113; J2405; J7030